=== PATIENT | female | born 1960 | race Native Hawaiian/Other Pacific Islander ===

== ENCOUNTER 2017-03-27 11:29 | Emergency (ER) | payer MEDICAID, OTHER ==
[2017-03-27 11:40] VITALS: RESP 18; BMI 23.0
--- NOTE | 2017-03-27 12:12 | ED PDOC ---
Arrival/HPI - General Chief Complaint: GI Problem Time Seen by Provider: 03/27/17 11:52 Historian: Patient - History of Present Illness Narrative History of Present Illness (Text): 03/27/17 12:03 56yr old female presents today with a 1 week history of productive cough and 2 day history of right sided rib/abdominal pain. no fever/chills. + sick contacts at home. no cp or sob. no vomiting. pt c/o 1 day history of right upper abdominal pain with cough. pt describes a 2/10 achy pain to the ruq/right lower ribs with cough and palpation. no medications taken for pain at home. no other complaints. no nausea. no dizziness or weakness. no urinary symptoms. no back pain. no other complaints. Time/Duration: Other (2 days) Symptom Onset: Gradual Quality: Aching Severity Level: 2 Past Medical History - Provider Review Nursing Documentation Reviewed: Yes - Travel History Have you recently traveled outside [place] w/in the past 3 mons?: No - Reproductive Menopause: Yes - Psychiatric Hx Substance Use: No - Surgical History Hx Section: Yes Family/Social History - Physician Review Nursing Documentation Reviewed: Yes Family/Social History: Unknown Family HX Smoking Status: Current Some Days Smoker Hx Alcohol Use: No Hx Substance Use: No Allergies/Home Meds Allergies/Adverse Reactions: Allergies No Known Allergies Allergy (Verified 03/27/17 11:39) Review of Systems - Review of Systems Constitutional: absent: Fatigue, Fevers ENT: absent: Sore Throat, Rhinorrhea, Sinus Congestion Respiratory: Cough. absent: SOB Cardiovascular: absent: Chest Pain, Palpitations Gastrointestinal: Abdominal Pain, Nausea. absent: Constipation, Diarrhea, Vomiting Genitourinary Female: absent: Dysuria, Frequency, Hematuria Musculoskeletal: Arthralgias (right lower rib pain). absent: Back Pain, Neck Pain Skin: absent: Rash, Pruritis Neurological: absent: Headache, Dizziness Psychiatric: absent: Anxiety, Depression, Suicidal Ideation Physical Exam Vital Signs Reviewed: Yes Vital Signs Temp Pulse Resp BP Pulse Ox 03/27/17 14:57 98.3 F 79 18 106/66 97 03/27/17 11:35 98.8 F 88 18 107/76 96 Temperature: Afebrile Blood Pressure: Normal Pulse: Regular Respiratory Rate: Normal Appearance: Positive for: Well-Appearing, Non-Toxic, Comfortable Pain Distress: None Mental Status: Positive for: Alert and Oriented X 3 - Systems Exam Head: Present: Atraumatic Mouth: Present: Moist Mucous Membranes Neck: Present: Normal Range of Motion Respiratory/Chest: Present: Clear to Auscultation, Good Air Exchange, Tender to Palpation (+ ttp over right lower anterior ribs; no step offs or crepitus; no ecchymosis or edema; ). No: Respiratory Distress, Accessory Muscle Use, Wheezes , Rales, Retracting, Rhonchi, Tachypneic Cardiovascular: Present: Regular Rate and Rhythm, Normal S1, S2. No: Murmurs Abdomen: Present: Normal Bowel Sounds. No: Tenderness, Distention, Peritoneal Signs, Rebound, Guarding Back: Present: Normal Inspection. No: Midline Tenderness, Paraspinal Tenderness Upper Extremity: Present: Normal Inspection, Normal ROM Lower Extremity: Present: Normal Inspection, Normal ROM. No: Edema Neurological: Present: GCS=15, Speech Normal Skin: Present: Warm, Dry, Normal Color. No: Rashes Psychiatric: Present: Alert, Oriented x 3 Medical Decision Making ED Course and Treatment: 03/27/17 12:13 56yr old female with 2 day history of cough and right sided rib/abd pain. + sick contacts at home. vitals stable. abdomen is non tender; cbc; wnl cmp; wnl lipase; wnl UA; positive blood, no leukocytes cxr; wnl ekg; normal sinus rhythm at 77 bpm normal axis normal intervals no ST elevations Patient with blood in the urine with prior history of kidney stone will do dry CAT scan of the abdomen to rule out nephrolithiasis CAT scan of the abdomen and pelvis:FINDINGS: LOWER THORAX: Unremarkable. LIVER: There is severe fatty infiltration of the liver GALLBLADDER AND BILE DUCTS: Unremarkable. PANCREAS: Unremarkable. No gross lesion or ductal dilatation. SPLEEN: Unremarkable. ADRENALS: Unremarkable. No mass. KIDNEYS AND URETERS: Unremarkable. No hydronephrosis. No solid mass. VASCULATURE: Unremarkable. No aortic aneurysm. BOWEL: Unremarkable. No obstruction. No gross mural thickening. APPENDIX: Unremarkable. Normal appendix. PERITONEUM: Unremarkable. No free fluid. No free air. LYMPH NODES: Unremarkable. No enlarged lymph nodes. BLADDER: Unremarkable. REPRODUCTIVE: Unremarkable. BONES: No acute fracture. OTHER FINDINGS: None. IMPRESSION: No acute findings pt reassessment; after Toradol patient feeling better. Abdomen remained soft nontender and nondistended. Vital signs are stable. 03/27/17 15:01 I discussed all results in depth with the patient advised follow-up with the primary care physician within the next 2 days. Advised follow-up with a GI doctor regarding elevated liver function tests and fatty liver on CAT scan. Advised immediate return if symptoms worsen persist or if new concerning symptoms develop pt with cough x 1 week; with right sided rib pain with cough, ttp over right lower anterior ribs; most likely musculoskeletal. Will start patient on motrin and Zithromax. Patient verbalizes understanding of discharge instructions and need for immediate followup. all aspects of this case were discussed the attending of record. Impression: Cough, rib pain, hematuria, elevated liver function tests, fatty liver Motrin every 6 hours as needed for pain Zithromax daily 4 days Increase fluids Follow-up with the primary care physician within the next 2 days Return immediately if symptoms worsen persist or if new concerning symptoms develop - Lab Interpretations Lab Results: 03/27/17 12:00 03/27/17 12:00 Lab Results 03/27/17 12:00: WBC 5.4, RBC 4.84, Hgb 15.5, Hct 43.8, MCV 90.5, MCH 32.0, MCHC 35.4, RDW 12.7, Plt Count 224, MPV 9.6, Gran % 34.8 L, Lymph % (Auto) 51.5 H, Kingfisher % (Auto) 12.2 H, Eos % (Auto) 0.9 L, Baso % (Auto) 0.6, Gran # 1.88, Lymph # 2.8, Kingfisher # 0.7 H, Eos # 0.1, Baso # 0.03 03/27/17 12:00: Sodium 138, Potassium 3.4 L, Chloride 105, Carbon Dioxide 24, Anion Gap 12, BUN 12, Creatinine 0.5 L, Est GFR ( Amer) > 60, Est GFR ( Non-Af Amer) > 60, Random Glucose 111 H, Calcium 9.3, Total Bilirubin 0.5, AST 53 H, ALT 73 H, Alkaline Phosphatase 103, Total Protein 7.7, Albumin 4.3, Globulin 3.3, Albumin/Globulin Ratio 1.3, Lipase 73 03/27/17 12:00: Urine Color Yellow, Urine Appearance Clear, Urine pH 6.0, Ur Specific Garrard >= 1.030, Urine Protein 30 H, Urine Glucose (UA) Negative, Urine Ketones 15 H, Urine Blood Moderate H, Urine Nitrate Negative, Urine Bilirubin Negative, Urine Urobilinogen 0.2, Ur Leukocyte Esterase Negative, Urine RBC 1 - 3, Urine WBC 0 - 2, Ur Epithelial Cells 4 - 5, Urine Bacteria Mod - RAD Interpretation Radiology Orders: 03/27/17 11:55 CHEST TWO VIEWS (PA/LAT) [RAD] Stat 03/27/17 12:39 ABD & PELVIS W/O PO OR IV CONT [CT] Stat - Medication Orders Current Medication Orders: Discontinued Medications Sodium Chloride (Sodium Chloride 0.9%) 500 mls @ 999 mls/hr IV .Q31M STA Stop: 03/27/17 13:00 Last Admin: 03/27/17 13:18 Dose: 999 mls/hr eMAR Start Stop Document 03/27/17 13:18 SRE (Rec: 03/27/17 13:18 SRE [place] [id number]) Intravenous Solution Start Date 03/27/17 Start Time 13:18 End Date 03/27/17 End time 14:20 Total Infusion Time 62 Ketorolac Tromethamine (Toradol) 15 mg IVP STAT STA Stop: 03/27/17 12:43 Last Admin: 03/27/17 13:17 Dose: 15 mg MAR Pain Assessment Document 03/27/17 13:17 SRE (Rec: 03/27/17 13:17 [email or web address] Pain Reassessment Is this a pain reassessment? Yes Sleep Is patient sleeping during reassessment? No Presence of Pain Presence of Pain Yes Pain Scale Used Pain Scale Used Numeric Location Pain Location Body Site Abdomen Description Description Intermittent IVP Administration Document 03/27/17 13:17 SRE (Rec: 03/27/17 13:17 [email or web address] Charges for Administration # of IVP Administrations 1 Disposition/Present on Arrival - Present on Arrival Any Indicators Present on Arrival: No History of DVT/PE: No History of Uncontrolled Diabetes: No Urinary Catheter: No History of Decub. Ulcer: No History Surgical Site Infection Following: None - Disposition Have Diagnosis and Disposition been Completed?: Yes Diagnosis: Cough, Rib pain, Elevated liver function tests, Fatty liver Disposition: HOME/ ROUTINE Disposition Time: 15:05 Patient Plan: Discharge Condition: GOOD Discharge Instructions (ExitCare): Acute Cough (ED) Additional Instructions: Motrin every 6 hours as needed for pain Zithromax daily 4 days Increase fluids Follow-up with the primary care physician within the next 2 days Return immediately if symptoms worsen persist or if new concerning symptoms develop Prescriptions: Azithromycin [Zithromax] 250 mg PO DAILY #4 tab Ibuprofen [Motrin] 600 mg PO Q6H PRN #20 tab PRN Reason: pain/fever reduction Referrals: Jas Spaulding DO [Staff Provider] - Follow up with primary Shruti Franz MD [Medical Doctor] - Follow up with primary Forms: [employer] ([place]), WORK NOTE
[2017-03-27 12:18] LABS: URINE BILIRUBIN NEGATIVE (NEGATIVE); URINE BLOOD MODERATE (NEGATIVE); URINE GLUCOSE (UA) NEGATIVE (NEGATIVE); URINE LEUKOCYTE ESTERASE NEGATIVE Leu/uL (NEGATIVE); URINE NITRATE NEGATIVE (NEGATIVE); URINE PROTEIN 30 mg/dL (<30 mg/dL); URINE UROBILINOGEN 0.2 E.U./dL (<1 E.U./dL)
[2017-03-27 12:19] LABS: BASO # 0.03 K/mm3 (0.0-2.0); BASO % 0.6 % (0.0-3.0); EOS # 0.1 (0.0-0.7); EOS % 0.9 % (1.5-5.0); GRAN # 1.88 (1.4-6.5); GRAN % 34.8 % (50.0-68.0); HEMOGLOBIN 15.5 g/dL (12.0-16.0); LYMPH # 2.8 (1.2-3.4); LYMPH % 51.5 % (22.0-35.0); MEAN CELL VOLUME 90.5 fl (80.0-105.0); MEAN CORPUSCULAR HGB CONC 35.4 g/dl (31.0-37.0); MEAN PLATELET VOLUME 9.6 fl (7.0-11.0); MONO # 0.7 (0.1-0.6); MONO % 12.2 % (1.0-6.0); RBC 4.84 10^6/uL (3.5-6.1); RED CELL DISTRIBUTION WIDTH 12.7 % (11.5-14.5); WHITE BLOOD COUNT 5.4 10^3/ul (4.5-11.0)
[2017-03-27 12:21] LABS: URINE APPEARANCE CLEAR (CLEAR); URINE COLOR YELLOW (YELLOW)
[2017-03-27 12:29] LABS: URINE WBC 0 - 2 /hpf (0-6)
[2017-03-27 12:30] LABS: ALB/GLOB RATIO 1.3 (1.1-1.8); ALBUMIN 4.3 g/dL (3.0-4.8); ALT/SGPT 73 U/L (7-56); AST/SGOT 53 U/L (14-36); BLOOD UREA NITROGEN 12 mg/dL (7-21); CALCIUM 9.3 mg/dL (8.4-10.5); GFR AFRICAN-AMERICAN > 60; GFR NON-AFRICAN AMERICAN > 60; LIPASE 73 U/L (23-300); URINE BACTERIA MOD (NEG)
[2017-03-27] MEDS ORDERED: Sodium Chloride 0.9% 500 ML IV STA (12:30)
--- NOTE | 2017-03-27 12:36 | RAD ---
HISTORY: cough COMPARISON: No prior. TECHNIQUE: Chest PA and lateral FINDINGS: LUNGS: No active pulmonary disease. PLEURA: No significant pleural effusion identified. No pneumothorax apparent. CARDIOVASCULAR: Normal. OSSEOUS STRUCTURES: No significant abnormalities. VISUALIZED UPPER ABDOMEN: Normal. OTHER FINDINGS: None. IMPRESSION: No active disease.
--- NOTE | 2017-03-27 14:21 | CT ---
PROCEDURE: CT Abdomen and Pelvis without intravenous contrast HISTORY: ABDOMINAL PAIN COMPARISON: None. TECHNIQUE: Without contrast.. Contrast Dose: Radiation dose: Total exam DLP = 238 mGy-cm. This CT exam was performed using one or more of the following dose reduction techniques: Automated exposure control, adjustment of the mA and/or kV according to patient size, and/or use of iterative reconstruction technique. FINDINGS: LOWER THORAX: Unremarkable. LIVER: There is severe fatty infiltration of the liver GALLBLADDER AND BILE DUCTS: Unremarkable. PANCREAS: Unremarkable. No gross lesion or ductal dilatation. SPLEEN: Unremarkable. ADRENALS: Unremarkable. No mass. KIDNEYS AND URETERS: Unremarkable. No hydronephrosis. No solid mass. VASCULATURE: Unremarkable. No aortic aneurysm. BOWEL: Unremarkable. No obstruction. No gross mural thickening. APPENDIX: Unremarkable. Normal appendix. PERITONEUM: Unremarkable. No free fluid. No free air. LYMPH NODES: Unremarkable. No enlarged lymph nodes. BLADDER: Unremarkable. REPRODUCTIVE: Unremarkable. BONES: No acute fracture. OTHER FINDINGS: None. IMPRESSION: No acute findings
[2017-03-27 14:58] VITALS: BP 106/66; PULSE 79; TEMP 98.3; O2SAT 97
--- NOTE | 2017-03-27 20:41 | CARD ---
APPROVED REPORT EKG Measurement Heart [id number] <Conclusion> Normal sinus rhythm Normal ECG
== END 2017-03-27 15:20 | disposition home or self-care (01) ==
LOC: ED 11:29
DX: R07.89 Other chest pain (principal); R05 Cough; K76.0 Fatty (change of) liver, not elsewhere classified; R94.5 Abnormal results of liver function studies
CPT/HCPCS: 71046; 74176; 80053; 81001; 83690; 85025; 93005; 96361; 96374; 99284; J1885; J7040